=== PATIENT | female | born 1985 ===

== ENCOUNTER 2022-12-06 15:12 | Emergency (ER) | payer OTHER ==
[~2022-12-06] VITALS: Ht 157.5 cm; Wt 100.4 kg
[2022-12-06 17:04] LABS: BASOPHILS 1.2 % (0-2); EOSINOPHILS 3.1 % (0-6); HEMATOCRIT 37.4 % (35.0-50.0); HEMOGLOBIN 12.4 g/dL (12.0-18.0); LYMPHOCYTES 31.4 % (24-44); MCH 29.9 (27-36); MCHC 33.2 g/dl (30-36); MCV 90.2 fl (81-99); MONOCYTES 7.5 % (0-12); NEUTROPHILS 56.8 % (39-80); PLATELET COUNT 392 K/uL (140-440); RBC 4.15 M/ul (4.3-5.7); RDW 13.2 (10.5-15.0)
[2022-12-06 17:39] LABS: ALBUMIN/GLOBULIN RATIO 1.21 (1.1-2.4); ANION GAP 13.8 (7-21); BILIRUBIN, TOTAL 0.4 ng/dL (0.2-1.0); BUN/CREATININE RATIO 14.7 (6.0-28.6); CALCIUM 8.9 mg/dL (8.5-10.1); CREATININE, SERUM 0.68 mg/dL (0.55-1.02); MAGNESIUM 2.1 mg/dL (1.8-2.4); POTASSIUM 3.8 mmol/L (3.5-5.1); PROTEIN, TOTAL 7.3 g/dL (6.4-8.2)
--- NOTE | 2022-12-06 17:41 | EKG ---
[facility] [address] [facility] [place], [place] [address] Signed Normal sinus rhythm Minimal voltage criteria for LVH, may be normal variant ( Sokolow-Campos ) Cannot rule out Inferior infarct , age undetermined Abnormal ECG No previous ECGs available Confirmed by MARIBEL GARCIA MD ([id number]) on 12/06/2022 5:40:47 PM Electronically Signed By: MARIBEL GARCIA 12/06/22 174 PATIENT NAME: KALEIGH GRAY Electrocardiogram DATE OF : 81 PHYSICIAN: MARIBEL GARCIA REPORT #: [id number] REPORT IS CONFIDENTIAL AND NOT TO BE RELEASED WITHOUT AUTHORIZATION
[2022-12-06 18:13] VITALS: BP 145/76
== END 2022-12-06 18:16 | disposition home or self-care (01) ==
LOC: ED 15:12
PROVIDERS: Emergency Medicine
DX: R07.89 Other chest pain (principal); R20.2 Paresthesia of skin
CPT/HCPCS: 36415; 71045; 80053; 83735; 84484; 85025; 93005; 93010; A9270